=== PATIENT | male | born 1995 | race Caucasian/White ===

== ENCOUNTER 2025-01-15 10:13 | Emergency (ER) | payer OTHER ==
[~2025-01-15] VITALS: Ht 185.4 cm; Wt 112.0 kg
[2025-01-15] MEDS ORDERED: ERYT5OIN25 OP (12:52)
[2025-01-15] MEDS: ERYTHROMYCIN OPHTH OINT OD ONE (13:01)
[2025-01-15 13:09] VITALS: BP 144/82; TEMP 96.9; O2SAT 95
== END 2025-01-15 13:10 | disposition home or self-care (01) ==
LOC: M ED 10:13
DX: H00.011 Hordeolum externum right upper eyelid (principal)